=== PATIENT | female | born 1990 | race Two or more races ===

== ENCOUNTER 2022-04-07 04:02 | Emergency (ER) | payer MEDICAID, SELFPAY ==
[2022-04-07] VITALS (8 sets, daily range): BP systolic 129–157; BP diastolic 67–107; PULSE 80–108; RESP 16–18; TEMP 36.5–37.1; O2SAT 97–100; BMI 35.6
--- NOTE | 2022-04-07 04:15 | ED.GENADULT ---
HPI - General Adult General Chief complaint: General Medical Stated complaint: Shoulder dislocated Time Seen by Provider: 04/07/22 04:15 Source: patient Mode of arrival: ambulatory Limitations: no limitations History of Present Illness HPI narrative: Patient comes to the emergency room complaining of left shoulder pain. Patient states that she was sleeping, her partner woke her up and she did a sudden movement with her left shoulder, thinks she popped it out. Patient states that when she was 13 years old she had left shoulder dislocation. Patient complaining of localized pain. States it is very painful to move her arm in any direction. Patient denies any elbow pain, no wrist pain. Denies any significant trauma other than moving her arm in a weird way Related Data Previous Rx's Medication Instructions Recorded ibuprofen 600 mg tablet 600 mg PO Q6H PRN pain #14 tabs 04/07/22 Allergies Allergy/AdvReac Type Severity Reaction Status Date / Time No Known Allergies Allergy Verified 04/07/22 04:12 Review of Systems Review of Systems: Constitutional : No Weight loss, No Fever, No Chills, No Night Sweats, No Fatigue, No Malaise ENT/Mouth : No Hearing loss, No Ear Pain, No Nasal Congestion, No Sinus Pain, No Hoarseness, No sore throat, No Rhinorrhea, No Swallowing Difficulty Eyes: No Eye Pain, No Swelling, No Redness, No Foreign Body, No Discharge, No Vision Changes Cardiovascular : No Chest Pain, No SOB, No Dyspnea on Exertion, No Orthopnea, No Edema, No Palpitations Respiratory : No Cough, No Sputum, No Wheezing, No Smoke Exposure, No Dyspnea Gastrointestinal : No Nausea, No Vomiting, No Diarrhea, No Constipation, No abdominal Pain, No Hematochezia, No Melena Genitourinary : no irregular bleeding, No Dysuria, No Urinary Frequency, No Hematuria, No Urinary Incontinence, No Urgency, No Flank Pain, No Urinary Flow Changes, No Hesitancy Musculoskeletal : Complaining of left shoulder pain, No Myalgias, No Joint Swelling Skin : No Skin Lesions, No rash Neuro : No Weakness, No Numbness, No Paresthesias, No Loss of Consciousness, No Dizziness, No Headache Psych : No Anxiety/Panic, No Depression, No SI/HI/AH/VH, No Social Issues, Heme/Lymph: No Bruising, No Bleeding,No Lymphadenopathy Endocrine : No Polyuria, No Polydipsia, No Temperature Intolerance [facility] Social History Social History Alcohol intake: never Patient Tobacco Use Status: Never used Tobacco Use of substances other than those prescribed or required for medical reasons: No Advance Directives: No Advance Directives Information Provided: No Physical Exam ED Vital Signs: Vital Signs - 24 hr 04/07/22 04:15 04/07/22 05:12 04/07/22 06:17 Temperature 97.7 F Pulse Rate 102 H 91 Respiratory Rate 16 16 18 Blood Pressure 138/107 H 135/67 Pulse Oximetry 100 99 Oxygen Delivery Method Room Air 04/07/22 06:21 04/07/22 05:55 04/07/22 06:25 Temperature 98.7 F Pulse Rate 108 H 87 80 Respiratory Rate 16 18 16 Blood Pressure 132/81 137/77 132/81 Pulse Oximetry 99 97 100 Oxygen Delivery Method Room Air 04/07/22 06:27 Temperature 98.2 F Pulse Rate 80 Respiratory Rate 17 Blood Pressure 129/76 Pulse Oximetry 100 Oxygen Delivery Method BMI result Body Mass Index 35.6 Const Other: Appearance: Alert. Oriented X3. No acute distress. Eyes: Pupils equal, round and reactive to light. ENT: Pharynx normal. Neck: Normal inspection. Neck supple. No lymph nodes noted. No crepitus CVS: Normal heart rate and rhythm. Pulses normal. Normal S1 and S2 Respiratory: No respiratory distress. Breath sounds normal. No Wheezing. No rales Abdomen: Soft and nontender. No rigidity. No distention. Skin: Skin warm and dry. Normal skin color. Normal skin turgor. Extremities: No lower extremity edema. Patient able to abduct the left arm. Seems dislocated Neuro: Oriented X 3. No motor deficit. No sensory deficit. Moving all extremities. No slurred speech. CN 2 through 12 grossly intact Psych: calm, cooperative, normal affect Course Course Course Narrative: Patient given IM Toradol, x-rays pending. I reviewed the x-ray, patient does have a dislocation. I discussed with the patient that we can reduce the a.m. shoulder by injecting IM lidocaine. Patient respectfully declined, patient states that she would prefer to be asleep for this procedure. Patient states that she has very low pain tolerance. Consent has been signed. Patient's last meal and drank was approximately 13 hours ago. We will go ahead and use propofol. Labs and EKG have been reviewed. Patient will be on the monitor, respiratory on standby. Patient was given initially 50 mg of propofol, then 25 additional. Good sedation was obtained. The left shoulder was successfully reduced Procedures Procedural Sedation Indication: fracture/dislocation reduction ASA Class: I Mallampati Class: III Preparation: teletypesetter monitor applied, pulse oximeter, capnometry used, supplemental O2 applied, suction/airway equipment at bedside and IV secured IV Propofol dose (mg): 75 Patient Tolerated Procedure: well and no complications Complications: none Medical Decision Making Lab Data Result diagrams: 04/07/22 05:09 04/07/22 05:10 Labs: Lab Results 04/07/22 04/07/22 Range/Units 05:09 05:10 WBC 10.6 (4.8-10.8) X10*3/uL RBC 4.99 (4.20-5.50) X10*6/uL Hgb 13.8 (12.0-16.0) g/dl Hct 40.8 (37.0-47.0) % MCV 81.8 (80.0-98.0) fL MCH 27.7 (27.0-33.0) pg MCHC 33.8 (31.0-35.0) g/dl RDW 12.8 (11.0-16.0) % Plt Count 326 (160-400) X10*3/uL MPV 10.3 (9.4-12.3) fL Immature Gran % (Auto) 0.5 H (0.0-0.4) % Neut % (Auto) 43.1 L (45-73) % Lymph % (Auto) 44.2 H (20-40) % Parmer % (Auto) 8.3 (2-11) % Eos % (Auto) 3.0 (0-4) % Baso % (Auto) 0.9 (0-2) % Lymph # (Auto) 4.7 (1.2-4.9) X10*3/uL Parmer # (Auto) 0.9 (0.1-1.2) X10*3/uL Eos # (Auto) 0.3 (0.0-0.4) X10*3/uL Baso # (Auto) 0.1 (0.0-0.2) X10*3/uL Abs Immat Gran (auto) 0.05 H (0.00-0.03) X10*3/uL Absolute Neuts (auto) 4.6 (2.0-8.3) x10*3/uL Absolute Nucleated RBC 0.000 (0.0-0.012) X10*3/uL Nucleated RBC % (auto) 0.0 (0.0-0.2) /100WBC Sodium 140 (135-145) mmol/L Potassium 3.7 (3.3-5.1) mmol/L Chloride 105 (96-108) mmol/L Carbon Dioxide 22 (22-29) mmol/L Anion Gap 17 (12-20) BUN 13 (9-16) mg/dL Creatinine 0.75 (0.5-1.4) mg/dL Estim Creat Clear Calc 110.2 Estimated GFR > 60 Random Glucose 111 (60-115) mg/dL Calcium 9.7 (8.4-10.2) mg/dL Imaging Data Shoulder x-ray status post reduction: Attestation: I personally reviewed and interpreted this imaging study as follows: My impression: Shoulder has been reduced Radiologist's impression: FINDINGS: Glenohumeral alignment is anatomic. No acute fracture is seen. Acromioclavicular joint appears intact.? XR/XR shoulder LT min 2V IMPRESSION: Anatomic alignment across the glenohumeral joint. Shoulder x-ray on arrival: My impression: Anterior dislocation Radiologist's impression: FINDINGS: There is anterior dislocation of the humeral head relative to the glenoid fossa. No acute fracture is seen. Acromioclavicular joint is intact.? XR/XR shoulder LT min 2V IMPRESSION: Anterior glenohumeral dislocation. Discharge Plan Discharge Clinical Impression: Anterior dislocation of left shoulder Patient Disposition: Home, Self-Care Instructions: Shoulder Dislocation (ED) Additional Instructions: Please follow-up with your primary care physician tomorrow. If you have any worsening or new symptoms, please return to the emergency room or call 911 Prescriptions: New ibuprofen 600 mg tablet 600 mg PO Q6H PRN (Reason: pain) Qty: 14 0RF Referrals: Caryl Olmedo PA-C [[facility] [employer]] - 04/08/22 Stand Alone Forms: Work/School Release
[2022-04-07] MEDS: Ketorolac Tromethamine 60 MG/2 ML VIAL IM (04:34)
[2022-04-07] MEDS: Morphine Sulfate 4 MG/ML CARTRIDGE IVPUSH (05:12)
[2022-04-07 05:15] LABS: MANUAL DIFF FLAG NO
[2022-04-07 05:17] LABS: Basophils Absolute Auto 0.1 X10*3/uL (0.0-0.2); Basophils Percent Auto 0.9 % (0-2); Eosinophils Absolute Auto 0.3 X10*3/uL (0.0-0.4); Hematocrit 40.8 % (37.0-47.0); Hemoglobin 13.8 g/dl (12.0-16.0); Imm Gran Abs Auto 0.05 X10*3/uL (0.00-0.03); Imm Gran Pct Auto 0.5 % (0.0-0.4); Lymphocytes Absolute Auto 4.7 X10*3/uL (1.2-4.9); Lymphocytes Percent Auto 44.2 % (20-40); Mean Corpuscular HGB Conc 33.8 g/dl (31.0-35.0); Mean Corpuscular Hemoglobin 27.7 pg (27.0-33.0); Mean Corpuscular Volume 81.8 fL (80.0-98.0); Mean Platelet Volume 10.3 fL (9.4-12.3); Monocytes Absolute Auto 0.9 X10*3/uL (0.1-1.2); Monocytes Percent Auto 8.3 % (2-11); Neutrophils Absolute Auto 4.6 x10*3/uL (2.0-8.3); Neutrophils Percent Auto 43.1 % (45-73); Platelet Count 326 X10*3/uL (160-400); Red Blood Count 4.99 X10*6/uL (4.20-5.50); Red Cell Distribution Width 12.8 % (11.0-16.0); White Blood Count 10.6 X10*3/uL (4.8-10.8)
[2022-04-07 05:29] LABS: Anion Gap 17 (12-20); Blood Urea Nitrogen 13 mg/dL (9-16); Calcium 9.7 mg/dL (8.4-10.2); Carbon Dioxide 22 mmol/L (22-29); Chloride 105 mmol/L (96-108); Creatinine Clr Calc Pharmacy 110.2; Estimated Glomerular Filt Rate > 60; Glucose Random 111 mg/dL (60-115); Potassium 3.7 mmol/L (3.3-5.1); Sodium 140 mmol/L (135-145)
[2022-04-07] MEDS: propofoL 200 MG/20 ML VIAL 50 MG IVPUSH ×2 (06:17→06:21)
--- NOTE | 2022-04-07 06:41 | PC.NURSE ---
Propofol 50 mg and additional 25 mg administered during the procedure. Propofol wasted in presence of [employer] import clerk.
== END 2022-04-07 07:32 | disposition home or self-care (01) ==
PROVIDERS: Emergency Provider Emergency Medicine
DX: S43.015A Anterior dislocation of left humerus, initial encounter (principal); M25.512 Pain in left shoulder; X58.XXXA Exposure to other specified factors, initial encounter; Y93.9 Activity, unspecified; Y92.9 Unspecified place or not applicable; Y99.9 Unspecified external cause status; Z79.899 Other long term (current) drug therapy
CPT/HCPCS: 23650; 36415; 73030; 80048; 85025; 93005; 96372; 96374; 96375; 96376; 99284; J1885; J2270